=== PATIENT | male | born 1950 | race Caucasian/White ===

== ENCOUNTER → 2017-02-13 | Outpatient (CLI) | payer OTHER ==
[~2017-02-13] MED LIST: ASPI81TA28 PO; GLUC250C PO; LISI-787 PO; METO-217 PO; OMEG10007 PO; VARD0.05 PO
== END | disposition home or self-care (01) ==
LOC: C.RDSM 13:49
PROVIDERS: ATTEND Physical Medicine & Rehabilitation Sports Medicine
DX: M25.562 Pain in left knee (principal)

== ENCOUNTER → 2017-02-23 | Outpatient (CLI) | payer OTHER ==
[2017-02-23 10:10] LABS: ALT/SGPT 28 U/L (12-78); AST/SGOT 17 U/L (15-37); BLOOD UREA NITROGEN 12 mg/dl (7-18); BUN/CREATININE RATIO 11.3 (10-20); CALCIUM 8.9 mg/dl (8.5-10.1); CARBON DIOXIDE 31 mmol/L (21-32); CHLORIDE 106 mmol/L (98-107); CHOLESTEROL 153 mg/dl (0-200); GLUCOSE 89 mg/dl (70-99); POTASSIUM 4.1 mmol/L (3.5-5.1); SODIUM 142 mmol/L (136-145); TRIGLYCERIDES 112 mg/dl (0-150); VERY LOW DENSITY LIPOPROT CALC 22 mg/dl
[2017-02-23 10:20] LABS: ALKALINE PHOSPHATASE 65 U/L (45-117); CHOLESTEROL/HDL RATIO 4.8; HDL CHOLESTEROL 32 mg/dl; LDL CHOLESTEROL CALCULATED 99 mg/dl
== END ==
LOC: C.LAB 07:29
PROVIDERS: ATTEND Internal Medicine Geriatric Medicine
DX: I10 Essential (primary) hypertension (principal); M19.90 Unspecified osteoarthritis, unspecified site; E78.5 Hyperlipidemia, unspecified

== ENCOUNTER → 2017-03-30 | Outpatient (CLI) | payer OTHER | END | disposition home or self-care (01) | LOC: C.RDSM 08:15 | PROVIDERS: ATTEND Physical Medicine & Rehabilitation Sports Medicine | DX: M25.551 Pain in right hip (principal); M25.552 Pain in left hip; Z96.649 Presence of unspecified artificial hip joint ==

== ENCOUNTER → 2017-07-12 | Outpatient (CLI) | payer OTHER ==
--- NOTE | 2017-07-12 09:50 | DIAGNOSTIC IMAGING REPORT ---
TWO VIEW CHEST CLINICAL HISTORY: Acute bronchitis. FINDINGS: PA and lateral chest radiographs are compared to study dated 03/01/2011. The heart is enlarged and there is atherosclerotic calcification of the thoracic aorta. The pulmonary vasculature is noncongested. Chronic interstitial thickening is similar to previous. No airspace consolidation or pleural effusion is seen. There is no pneumothorax. The skeletal structures are osteopenic. Degenerative change is noted throughout the thoracic spine. IMPRESSION: Cardiomegaly with no active disease in the chest. Electronically signed by: Kevin Jean-Baptiste M.D. 07/12/2017 9:48 AM Dictated Date/Time: 07/12/2017 9:48 AM
== END | disposition home or self-care (01) ==
LOC: C.RADBC 08:25
PROVIDERS: ATTEND Internal Medicine Geriatric Medicine
DX: J20.9 Acute bronchitis, unspecified (principal)

== ENCOUNTER → 2017-08-08 | Outpatient (CLI) | payer OTHER | END | disposition home or self-care (01) | LOC: C.LAB 16:32 | PROVIDERS: ATTEND Urology | DX: Z00.00 Encounter for general adult medical examination without abnormal findings (principal); Z85.46 Personal history of malignant neoplasm of prostate; N52.9 Male erectile dysfunction, unspecified ==

== ENCOUNTER → 2018-03-12 | Outpatient (CLI) | payer OTHER ==
[2018-03-12 12:33] LABS: ALBUMIN 3.7 gm/dl (3.4-5.0); ALT/SGPT 36 U/L (12-78); AST/SGOT 27 U/L (15-37); BLOOD UREA NITROGEN 14 mg/dl (7-18); CARBON DIOXIDE 25 mmol/L (21-32); CHOLESTEROL 178 mg/dl (0-200); CREATININE 0.93 mg/dl (0.60-1.40); GLUCOSE 99 mg/dl (70-99); SODIUM 139 mmol/L (136-145)
[2018-03-12 12:36] LABS: ALKALINE PHOSPHATASE 65 U/L (45-117); LDL CHOLESTEROL CALCULATED 108 mg/dl; TOTAL PROTEIN 7.4 gm/dl (6.4-8.2)
== END | disposition home or self-care (01) ==
LOC: C.LAB 10:59
PROVIDERS: ATTEND Psychiatry & Neurology Psychiatry
DX: F33.1 Major depressive disorder, recurrent, moderate (principal); I10 Essential (primary) hypertension; E78.5 Hyperlipidemia, unspecified; Z86.010 Personal history of colon polyps

== ENCOUNTER 2025-02-17 15:46 | Observation (INO) ==
[2025-02-17] MEDS: SODIUM CHLORIDE 0.9% 500 ML IV SCH (17:13)
[2025-02-17 17:19] LABS: Alanine Aminotransferase 35.0 U/L (7-52); Albumin Globulin Ratio 1.2 (0.9-2); Alkaline Phosphatase 266.0 U/L (34-104); Anion Gap 8.0 (3-11); Bilirubin,Total 0.6 mg/dl (0.2-1.0); Blood Urea Nitrogen 14.0 mg/dl (6-23); Calcium 8.7 mg/dl (8.6-10.3); Carbon Dioxide 27.0 mmol/L (21-32); Chloride 102.0 mmol/L (98-107); Creatinine Clr Calc Pharmacy 79.7 ml/min; Globulin 2.8 gm/dl (2.5-4.0); Glucose 206.0 mg/dl (70-99(Fasting)); Magnesium 1.8 mg/dl (1.7-2.4); Potassium 3.7 mmol/L (3.5-5.1); Sodium 137.0 mmol/L (136-145); Total Protein 6.1 gm/dl (6.0-8.3)
--- NOTE | 2025-02-17 17:21 | Emergency Department Note ---
Impression & Plan CHI (closed head injury), Acute pain of right hip, Fall, Periprosthetic fracture around internal prosthetic right hip joint ED Provider Note ED Provider Note NAME: CORINNA AGUILAR AGE:74 SEX: Male : 1950 ARRIVES VIA: EMS INFORMANT: Patient ED PROVIDER(s): Ade Mayfield DO CHIEF COMPLAINT: Fall, right hip pain HPI: This is a 74-year-old male presents emergency department due to concern for right hip pain after a fall at home. Patient states he got up from eating outside on the deck, was carrying things to go back into the house and they started to fall and as he tried to grab them he became unsteady and off balance and fell backwards and slightly to the right. Patient states he did strike his head but did not lose consciousness or pass out. He states he then tried to crawl to grab a hold of something to try and get back up. Family came out and helped him. They did give him a walker and they were able to help him to a standing position however patient had severe pain trying to bear weight at the right hip. Patient states he has had prior bilateral hip replacements and a knee replacement as well done by Dr. Valentin of orthopedics. Patient is currently receiving chemotherapy. No current antiplatelet or anticoagulation medications. He denies any current headaches, dizziness, vision changes, worsening nausea, shortness of breath, chest pain, abdominal pain, neck or back pain. PAST MEDICAL HISTORY:See Below PAST SURGICAL HISTORY:See Below FAMILY HISTORY:See Below SOCIAL HISTORY:See Below HOME MEDICATIONS:See Below ALLERGIES:See Below VITALS:See Below PHYSICAL EXAMINATION: GENERAL: alert, well appearing, well nourished, no distress, non-toxic HEAD: nc, 2 contusions with superficial abrasions noted EYE EXAM: normal conjunctiva, PERRL and EOM's grossly intact OROPHARYNX: no exudate, no erythema, lips, buccal mucosa, and tongue normal and mucous membranes are moist NECK: supple, no nuchal rigidity, no adenopathy, non-tender, FROM LUNGS: Clear to auscultation. Normal chest wall mechanics, no w/r/r HEART: no murmurs, S1 normal and S2 normal CHEST WALL: no crepitus, no bony tenderness, no step off ABDOMEN: abdomen soft, non-tender, normo-active bowel sounds, no masses, no rebound or guarding. BACK: Back is symmetrical on inspection and there is no deformity, no midline tenderness, no CVA tenderness. SKIN: no rashes, petechiae, orbruising UPPER EXTREMITIES: upper extremities are grossly normal. FROM, nml pulses b/l. No evidence of trauma or deformities. Small superficial abrasion noted just distal to the olecranon process of the left elbow. LOWER EXTREMITIES: No pitting edema. FROM, nml pulses b/l. Well healed incisions b/l hips, pain with palpation over the lateral and anterior aspect of the right hip although patient does have some ability to flex the hip, no obvious trauma along the rest of the right lower extremity, no joint effusions, no bony tenderness NEURO EXAM: Normal sensorium, cranial nerves II-XII grossly intact, normal speech, no facial droop,nogross weakness of arms, no gross weakness of legs. Gross sensation intact. No ataxia. Vital Signs: reviewed and remarkable Differential Diagnosis: chi, fracture, contusion, abrasion, dislocation, hardware disruption, musculoskeletal strain/sprain, as well as others were considered MEDICAL DECISION MAKING: This is a 74-year-old male brought in by EMS after an accidental fall with complaints of right hip pain. Patient does admit to striking his head but denies LOC. He was afebrile and hemodynamically stable on arrival. Labs drawn and sent, IV established, EKG and x-rays performed at bedside and interpreted by me and patient monitored on telemetry. He was given IV fentanyl and IV Tylenol for pain. CT of the head and C-spine were reassuring however x-ray of the right hip and pelvis showed a periprosthetic right hip fracture. Case was discussed with on-call orthopedics who stated patient could be kept here on the hospitalist service for pain control, PT and Ortho evaluation tomorrow. Patient and family updated at bedside. Patient was noted to have a leukocytosis however I suspect this is more likely stress demargination as the procalcitonin was negative. I am less suspicious of occult infectious etiology despite his chemotherapy. Patient does use ASA daily, no anticoagulation. I have a low suspicion for any additional occult traumatic injury. Case discussed with the hospitalist team for additional evaluation and mgmt. Consultation(s): 1854: Discussed with Rand Bess, with orthopedics for Dr. Alcocer. They state patient can be admitted here for pain control and PT evaluation. 172: Discussed with Dr. Burnett, [place] hospitalist team, for additional evaluation and mgmt. ER Treatment Provided: See below Diagnostics Interpreted By Me: -ECG: Normal sinus at 60, nml axis, nml intervals, no acute ST/T wave changes -Cardiac Monitoring: An order was placed for continuous cardiac monitoring. The monitor shows a rate of 66 with normal sinus rhythm. -Laboratory studies: As stated above and show below. -Imaging studies: X-ray Chest: A single view study of the chest was reviewed and was negative for cardiomegaly, focal infiltrate, effusion, pulmonary edema, or wide mediastinum. xr hip/pelvis: right periprosthetic hip fracture Triage Nursing Note Reviewed Prior/Outside Records Reviewed Past Med/Surg History Problem List (Updated 02/18/25 @ 00:34 by Ade Mayfield DO) Periprosthetic fracture around internal prosthetic right hip joint (Acute) Femur fracture, right Fall (Acute) Acute pain of right hip (Acute) CHI (closed head injury) (Acute) Pancreatic cancer Hypokalemia Obesity (BMI 30-39.9) Hypertension Hyperlipidemia Left knee DJD Incontinence of urine OCD (obsessive compulsive disorder) Depression History of prostate cancer Erectile dysfunction Medical History Sensorineural hearing loss of both ears Tinnitus, bilateral Vitamin D deficiency ANVIK (hard of hearing) History of prostate cancer 2006 History of colon polyps Mitral regurgitation MILD TO MODERATE Osteoarthritis Anxiety Surgical History History of esophagogastroduodenoscopy (EGD) History of colonoscopy 11/2019 repeat 5 yrs History of total left knee replacement (TKR) History of tonsillectomy History of herniorrhaphy B/L INGUINAL History of prostatectomy (~2006) TOTAL (2006) History of total hip arthroplasty B/L Family History Father Prostate cancer Lung cancer Smoker Mother , in a MVA; no medical problems Family hx colonic polyps Other No family history of adverse response to anesthesia Denies family history of Ovarian cancer Myocardial infarction Breast cancer Colorectal cancer Social History Smoking Status: Never smoker Second Hand Exposure: No; Do You Dip or Chew Tobacco: No; Hx Alcohol Use: Yes Alcohol type: beer Alcohol Intake Frequency: Monthly or Less Alcohol Intake Frequency Comment: social Hx Substance Use: No Preferred Language: [place] Communication Ability: Effective Visual Impairment: Limited Hearing Ability: Normal Airport Ramp Attendant Required: No Beliefs That Will Affect Care: None marital status: Current Living Situation: Spouse current occupational status: employed How many Children do You have: 2 Feels Safe at Home: Yes Childhood Exposure to Second-Hand Smoke: Yes (father smoked ) Diet: regular Diet Comment: healthy caffeine: No Dental Care, Regularly: Yes Physical Activity Frequency: Daily Seatbelt Use: always Sunscreen Use: Yes Do you think of yourself as: straight/heterosexual Assistive Devices: Glasses Allergies Allergies Allergy/AdvReac Type Severity Reaction Status Date / Time No Known Allergies Allergy Unknown Verified 02/17/25 17:54 Home Meds Home Medications Medication Instructions Recorded Confirmed fluvoxamine 100 mg tablet 100 mg PO TID 09/30/24 02/17/25 cholecalciferol (vitamin D3) 50 2,000 unit PO DAILY 10/16/24 02/17/25 mcg (2,000 unit) capsule clonazepam 0.5 mg tablet 0.25 mg PO BID PRN Anxiety 10/16/24 02/17/25 omega 1-wfi-msy-fish oil 1,000 mg 1 cap PO DAILY 01/28/25 02/17/25 (120 mg-180 mg) capsule (Fish Oil) aspirin 81 mg tablet,delayed 81 mg PO QPM 02/17/25 02/17/25 release potassium chloride 20 mEq 20 meq PO Q OTHER DAY 02/17/25 02/17/25 tablet,extended release Previous Rx's Medication Instructions Recorded sildenafil (pulm.hypertension) 20 20 - 100 mg (1 - 5 x 20 mg) PO 12/26/23 mg tablet DAILY PRN sexual activity #30 tabs hydrochlorothiazide 12.5 mg tablet 12.5 mg PO DAILY #30 tabs 01/28/25 Results & Data (ED) Vital Signs Vital Signs - 24 hr 02/17/25 16:07 02/17/25 18:23 02/17/25 19:18 Temperature 36.6 C Temperature Source Oral Pulse Rate 61 Pulse Rate [Apical] 61 60 Pulse Rhythm [Apical] Regular Respiratory Rate 18 17 16 Respiratory Depth Normal Blood Pressure 132/79 Blood Pressure [Left Arm] 133/75 139/88 Blood Pressure Mean 96 Blood Pressure Mean [Left Arm] 94 105 Pulse Oximetry 96 95 96 Oxygen Delivery Method Room Air Room Air Room Air Sepsis Recent Fever Within 48 Hours No Sepsis New/Unexplained Change in Mental Status No Sepsis Action Taken by Nursing No Action Required 02/17/25 20:12 Temperature Temperature Source Pulse Rate Pulse Rate [Apical] 84 Pulse Rhythm [Apical] Respiratory Rate 16 Respiratory Depth Normal Blood Pressure Blood Pressure [Left Arm] 148/87 H Blood Pressure Mean Blood Pressure Mean [Left Arm] 107 Pulse Oximetry 95 Oxygen Delivery Method Room Air Sepsis Recent Fever Within 48 Hours Sepsis New/Unexplained Change in Mental Status Sepsis Action Taken by Nursing Laboratory Data 02/17/25 16:43 02/17/25 23:36 Lab Results 02/17/25 02/17/25 Range/Units 16:43 19:20 WBC 19.35 H (4.8-10.8) K/ul RBC 3.97 L (4.70-6.10) M/uL Hgb 12.6 L (14.0-18.0) g/dl Hct 36.9 L (42.0-52.0) % MCV 92.9 (80.0-100.0) fL MCH 31.7 (25.0-34.0) pg MCHC 34.1 (32.0-36.0) g/dL RDW Std Deviation 53.4 H (36.4-46.3) fL RDW Coeff of Vincenzo 15.8 H (11.5-14.5) % Plt Count 131 (130-400) K/uL MPV 10.2 (9.4-12.4) fL Immature Gran % (Auto) 1.2 % Neut % (Auto) 89.0 % Lymph % (Auto) 6.3 % [place] % (Auto) 2.8 % Eos % (Auto) 0.2 % Baso % (Auto) 0.5 % Neut # (Auto) 17.24 H (1.40-6.50) K/uL Lymph # (Auto) 1.22 (1.20-3.40) K/uL [place] # (Auto) 0.54 (0.11-0.59) K/uL Eos # (Auto) 0.03 (0.00-0.50) K/uL Baso # (Auto) 0.09 (0.00-0.20) K/uL Immature Gran # (Auto) 0.23 H (0.01-0.20) K/uL Dohle Bodies 3+ PT 11.6 (9.0-12.0) Seconds INR 1.1 (0.9-1.1) Sodium 137 (136-145) mmol/L Potassium 3.7 (3.5-5.1) mmol/L Chloride 102 (98-107) mmol/L Carbon Dioxide 27 (21-32) mmol/L Anion Gap 8 (3-11) BUN 14 (6-23) mg/dl Creatinine 0.94 (0.6-1.4) mg/dl Est Cr Clr Drug Dosing 79.7 ml/min eGFR 85.07 BUN/Creatinine Ratio 14.9 (10-20) Glucose 206 H (70-99(Fasting)) mg/dl Calcium 8.7 (8.6-10.3) mg/dl Magnesium 1.8 (1.7-2.4) mg/dl Total Bilirubin 0.6 (0.2-1.0) mg/dl AST 28 (13-39) U/L ALT 35 (7-52) U/L Alkaline Phosphatase 266 H (34-104) U/L Total Creatine Kinase 74 (30-223) U/L Total Protein 6.1 (6.0-8.3) gm/dl Albumin 3.3 L (3.4-5.0) gm/dl Globulin 2.8 (2.5-4.0) gm/dl Albumin/Globulin Ratio 1.2 (0.9-2) Procalcitonin 0.28 (0-0.5) ng/ml Urine Color Dark Yellow Urine Appearance Clear (Clear) Urine pH 6.5 (4.5-7.5) Ur Specific [place] 1.022 (1.000-1.030) Urine Protein Negative (Negative) Urine Glucose (UA) Negative (Negative) Urine Ketones Negative (Negative) Urine Blood Negative (Negative) Urine Nitrite Negative (Negative) Urine Bilirubin Negative (Negative) Urine Urobilinogen Negative (Negative) Ur Leukocyte Esterase Negative (Negative) Urine Comment Administered Medications Clonazepam (Clonazepam 0.25 Mg Od Tab) 0.25 mg PO TID HAZEL Stop: 03/19/25 22:54 Last Admin: 02/17/25 23:42 Dose: Not Given Documented By: RICHY Fluvoxamine Maleate (Fluvoxamine Maleate 50 Mg Tab) 100 mg PO TID HAZEL Stop: 03/19/25 22:54 Last Admin: 02/17/25 23:43 Dose: 100 mg Documented By: RICHY Lactated Ringer's (Lr) 1,000 mls @ 125 mls/hr IV .Q8H HAZEL Stop: 02/21/25 00:00 Last Admin: 02/17/25 23:50 Dose: 125 mls/hr Documented By: RICHY Morphine Sulfate (Morphine Sulfate 4 Mg/Ml 1 Ml Carp\Vial) 4 mg IV Q3H PRN PRN Reason: Pain (6,7,8,9,10) Stop: 03/03/25 22:54 Last Admin: 02/17/25 23:43 Dose: 4 mg Documented By: RICHY Discontinued Medications Fentanyl Citrate (Fentanyl Citrate Pf 100 Mcg/2 Ml Vial) 50 mcg IV Q15M PRN PRN Reason: Pain Stop: 03/03/25 16:24 Last Admin: 02/17/25 22:21 Dose: 50 mcg Documented By: Admin: 02/17/25 17:13 Dose: 50 mcg Documented By: LINDA Sodium Chloride (Nss) 500 mls @ 125 mls/hr IV .Q4H HAZEL Stop: 02/17/25 20:29 Last Infusion: 02/17/25 21:33 Dose: Infused Documented By: Admin: 02/17/25 17:13 Dose: 125 mls/hr Documented By: LINDA Acetaminophen (Ofirmev) 1,000 mg in 100 mls @ 400 mls/hr IV NOW STA Stop: 02/17/25 19:11 Last Admin: 02/17/25 22:59 Dose: Not Given Documented By: RICHY Imaging Data Radiologist's Impression: Hip/Pelvis X-Ray 02/17/25 16:25 Study: Pelvis 1 view, right hip 2 views History: Pain Comparison: 08/24/2023 Findings: Bilateral total hip arthroplasty. A fracture extends into the proximal femur at the base of the greater trochanter laterally, and extends into the stem of the arthroplasty. Single frontal view of the left arthroplasty appears intact without fracture. Alignment is anatomic. Joint spaces are well maintained. There is no joint effusion or significant soft tissue swelling. Bone mineralization is decreased. Impression: Fracture of the proximal right femur extending into the stem of the arthroplasty Electronically signed by Erasto Quiros 02-17-2025 6:[address] 02/17/25 16:26 EXAM: CT cervical spine wo con CLINICAL HISTORY: trauma TECHNIQUE: CT scan of the cervical spine was performed without the administration of intravenous contrast. Contiguous axial images were obtained from the skull base to the upper thoracic spine. Coronal and sagittal reformatted images were also reviewed. One of the following dose reduction techniques was utilized for this exam. Automated exposure control, adjustment of the mA and/or kV according to patient size, and use of iterative reconstruction. COMPARISON: No previous studies are available for comparison. FINDINGS: Advanced cervical spondylotic changes are seen by wedging (C5) and multilevel large anterior marginal and bridging osteophytes (some are detached). Vertebrae: No evidence of acute fracture or dislocation. Generalized osteopenia. No signs of lytic or sclerotic lesions. Normal configuration of the posterior elements. Grade 1 anterolisthesis of C3 over C4. Atlantoaxial osteoarthritic changes. Intervertebral Discs: The intervertebral disc spaces are narrowed at multiple levels. Significantly reduced intervertebral disc space at C3-C4, C5-C6 and C6-C7 levels with vacuum phenomena and disc osteophyte complexes indenting the ventral thecal sac and narrowing the bilateral neural foramina. No critical bony canal stenosis. Facet Joints: Multilevel facet osteoarthropathy. No evidence of dislocation or subluxation. Neural Foramina: The neural foramina are narrowed at multiple levels. Prevertebral Soft Tissues: The prevertebral soft tissues are normal in thickness without evidence of mass or abnormal fluid collection. Additional Findings: Right central venous line inserted. IMPRESSION: 1. Advanced cervical spondylosis. 2. No evidence of acute fracture or dislocation. Electronically signed by Kevin Cruz 02-17-2025 6:19 PM Chest X-Ray 02/17/25 16:26 Chest radiograph, one view History: Chest pain Comparison: None Findings: Single AP view of the chest performed. No focal consolidation or pleural effusion. No pneumothorax. Right chest wall port with catheter tip at the superior atrial caval junction. The cardiomediastinal silhouette is within normal limits. Normal pulmonary vascularity. No evidence for lymphadenopathy. No visualized bony or soft tissue abnormality. Degenerative changes of the thoracic spine. Impression: Normal chest radiograph Electronically signed by Erasto Quiros 02-17-2025 6:[address] 02/17/25 16:26 EXAM: CT head/brain wo con CLINICAL HISTORY: trauma. Pt presents to ED via EMS from home with Right hip pain after a fall. Pt states he was on the first stair, fell backwards and struck his head, and began having right hip pain. EMS notes the pt has had bilateral hip replacements and the right does not feel the same as the left. pt is unable to bear weight at this point. pt is a cancer pt on chemo for pancreatic cancer. BP was low for EMS at 100/45 TECHNIQUE: Axial non-contrast CT scan of the brain was performed from the skull base to the high parietal region. One of the following dose reduction techniques were utilized for this exam: Automated exposure control, adjustment of the mA and/or kV according to patient size, use of iterative reconstruction. DLP: 1818.42 mGy.cm COMPARISON: None. FINDINGS: Brain Parenchyma: Age-related involutionary changes. Normal attenuation of the cerebral hemispheres, cerebellum, and brainstem. No evidence of acute infarct, hemorrhage, or mass effect. No abnormal areas of hypo- or hyperattenuation. Ventricular System: No evidence of hydrocephalus or ventricular enlargement. Subarachnoid Spaces: Prominent sulci and cisterns. No evidence of subarachnoid hemorrhage or extra-axial fluid collections. Cerebellum and Brainstem: No masses, lesions, or areas of abnormal density. Giant cisterna magna. Orbits: Normal appearance of the globes, optic nerves, and extraocular muscles. No evidence of orbital masses or abnormal density. Sinuses: Clear paranasal sinuses. No evidence of sinusitis or mucosal thickening. Mastoid Air Cells: Clear mastoid air cells. No evidence of mastoiditis. Skull: Normal skull morphology. Small subgaleal soft tissue swelling with thickness of 6.8 mm in right occipital region. IMPRESSION: 1. Age-related involutionary changes. 2. Small subgaleal soft tissue swelling with thickness of 6.8 mm in right occipital region. 3. No acute intracranial hemorrhage. Electronically signed by Kevin Cruz 02-17-2025 5:51 PM Discharge Plan Visit Data Chief Complaint: Fall Stated Complaint: fall ED Provider: Ade Mayfield Discharge Problem: CHI (closed head injury), Acute pain of right hip, Fall, Periprosthetic fracture around internal prosthetic right hip joint Patient Disposition: Admitted As Inpatient Condition: Fair Discharge Instructions Interventions: ED Discharge Assessment Last Done: 02/17/25 22:38
[2025-02-17 17:26] LABS: INR 1.1 (0.9-1.1); Prothrombin Time 11.6 Seconds (9.0-12.0)
[2025-02-17 17:41] LABS: Dohle Bodies 3+; Hematocrit (blood only) 36.9 % (42.0-52.0); Hemoglobin 12.6 g/dl (14.0-18.0); Immature Granulocytes # (auto) 0.23 K/uL (0.01-0.20); Immature Granulocytes % (auto) 1.2 %; Mean Corpuscular Hemoglobin 31.7 pg (25.0-34.0); Mean Corpuscular Volume 92.9 fL (80.0-100.0); Platelet Count 131 K/uL (130-400); RDW Standard Deviation 53.4 fL (36.4-46.3); Red Blood Count 3.97 M/uL (4.70-6.10); White Blood Count 19.35 K/ul (4.8-10.8)
--- NOTE | 2025-02-17 17:52 | CT Scan Report ---
EXAM: CT head/brain wo con CLINICAL HISTORY: trauma. Pt presents to ED via EMS from home with Right hip pain after a fall. Pt states he was on the first stair, fell backwards and struck his head, and began having right hip pain. EMS notes the pt has had bilateral hip replacements and the right does not feel the same as the left. pt is unable to bear weight at this point. pt is a cancer pt on chemo for pancreatic cancer. BP was low for EMS at 100/45 TECHNIQUE: Axial non-contrast CT scan of the brain was performed from the skull base to the high parietal region. One of the following dose reduction techniques were utilized for this exam: Automated exposure control, adjustment of the mA and/or kV according to patient size, use of iterative reconstruction. DLP: 1818.42 mGy.cm COMPARISON: None. FINDINGS: Brain Parenchyma: Age-related involutionary changes. Normal attenuation of the cerebral hemispheres, cerebellum, and brainstem. No evidence of acute infarct, hemorrhage, or mass effect. No abnormal areas of hypo- or hyperattenuation. Ventricular System: No evidence of hydrocephalus or ventricular enlargement. Subarachnoid Spaces: Prominent sulci and cisterns. No evidence of subarachnoid hemorrhage or extra-axial fluid collections. Cerebellum and Brainstem: No masses, lesions, or areas of abnormal density. Giant cisterna magna. Orbits: Normal appearance of the globes, optic nerves, and extraocular muscles. No evidence of orbital masses or abnormal density. Sinuses: Clear paranasal sinuses. No evidence of sinusitis or mucosal thickening. Mastoid Air Cells: Clear mastoid air cells. No evidence of mastoiditis. Skull: Normal skull morphology. Small subgaleal soft tissue swelling with thickness of 6.8 mm in right occipital region. IMPRESSION: 1. Age-related involutionary changes. 2. Small subgaleal soft tissue swelling with thickness of 6.8 mm in right occipital region. 3. No acute intracranial hemorrhage. Electronically signed by Kevin Cruz 02-17-2025 5:51 PM
--- NOTE | 2025-02-17 18:02 | XRay Report ---
Study: Pelvis 1 view, right hip 2 views History: Pain Comparison: 08/24/2023 Findings: Bilateral total hip arthroplasty. A fracture extends into the proximal femur at the base of the greater trochanter laterally, and extends into the stem of the arthroplasty. Single frontal view of the left arthroplasty appears intact without fracture. Alignment is anatomic. Joint spaces are well maintained. There is no joint effusion or significant soft tissue swelling. Bone mineralization is decreased. Impression: Fracture of the proximal right femur extending into the stem of the arthroplasty Electronically signed by Erasto Quiros 02-17-2025 6:01 PM
--- NOTE | 2025-02-17 18:04 | XRay Report ---
Chest radiograph, one view History: Chest pain Comparison: None Findings: Single AP view of the chest performed. No focal consolidation or pleural effusion. No pneumothorax. Right chest wall port with catheter tip at the superior atrial caval junction. The cardiomediastinal silhouette is within normal limits. Normal pulmonary vascularity. No evidence for lymphadenopathy. No visualized bony or soft tissue abnormality. Degenerative changes of the thoracic spine. Impression: Normal chest radiograph Electronically signed by Erasto Quiros 02-17-2025 6:01 PM
--- NOTE | 2025-02-17 18:20 | CT Scan Report ---
EXAM: CT cervical spine wo con CLINICAL HISTORY: trauma TECHNIQUE: CT scan of the cervical spine was performed without the administration of intravenous contrast. Contiguous axial images were obtained from the skull base to the upper thoracic spine. Coronal and sagittal reformatted images were also reviewed. One of the following dose reduction techniques was utilized for this exam. Automated exposure control, adjustment of the mA and/or kV according to patient size, and use of iterative reconstruction. COMPARISON: No previous studies are available for comparison. FINDINGS: Advanced cervical spondylotic changes are seen by wedging (C5) and multilevel large anterior marginal and bridging osteophytes (some are detached). Vertebrae: No evidence of acute fracture or dislocation. Generalized osteopenia. No signs of lytic or sclerotic lesions. Normal configuration of the posterior elements. Grade 1 anterolisthesis of C3 over C4. Atlantoaxial osteoarthritic changes. Intervertebral Discs: The intervertebral disc spaces are narrowed at multiple levels. Significantly reduced intervertebral disc space at C3-C4, C5-C6 and C6-C7 levels with vacuum phenomena and disc osteophyte complexes indenting the ventral thecal sac and narrowing the bilateral neural foramina. No critical bony canal stenosis. Facet Joints: Multilevel facet osteoarthropathy. No evidence of dislocation or subluxation. Neural Foramina: The neural foramina are narrowed at multiple levels. Prevertebral Soft Tissues: The prevertebral soft tissues are normal in thickness without evidence of mass or abnormal fluid collection. Additional Findings: Right central venous line inserted. IMPRESSION: 1. Advanced cervical spondylosis. 2. No evidence of acute fracture or dislocation. Electronically signed by Kevin Cruz 02-17-2025 6:19 PM
[2025-02-17 19:26] LABS: Appearance Urine Clear (Clear); Glucose Urine UA Negative (Negative)
--- NOTE | 2025-02-17 19:46 | History & Physical Report ---
Date of Service February 17, 2025 Assessment & Plan (1) Femur fracture, right: (2) Fall: (3) CHI (closed head injury): (4) Pancreatic cancer: Plan 74-year-old male PMHx pancreatic cancer on chemotherapy, HTN, HLD, obesity, pancreatic cancer, depression and OCD presenting with R hip pain after falling backwards and striking his head the day of arrival. ED evaluation reveals CBC with leukocytosis 19.35, H&H 12.6/36.9; PT/INR WNL; CMP glucose 206, alkaline phosphatase 266, albumin 3.3; procalcitonin 0.28; UA negative for infection; hip/pelvis XR (R) fracture of proximal R femur extending into the stem of arthroplasty; cervical spine CT advanced cervical spondylosis but no fracture or dislocation; CXR WNL; head CT age-related changes, small subgaleal soft tissue swelling with thickness of 6.8 mm in R occipital region, no acute hemorrhage; EKG NSR at 60 bpm.; Provided with 500 mL NSS, fentanyl citrate 50 mcg IV, and acetaminophen 1 g IV in ED. #R femur fracture/Fall/Closed head injury Pt presenting for R hip pain after falling backwards, unable to bear weight on R hip. - CBC leukocytosis of 19.35, procalcitonin 0.28; CMP alkaline phosphatase 266; CK pending - CBC am - R hip/pelvis XR large fracture of proximal femur extending into stem of a rthroplasty - CXR WNL - Cervical spine CT with spondylosis but no acute findings - Head CT without acute bleed, does reveal small subcu soft tissue swelling with 6.8 mm thickness in R occipital region - Fall precautions - NPO - IVF LR @ 125 mL/hr - Pain management acetaminophen, morphine prn pain - PT/OT ordered - appreciate assistance - Ortho consulted - appreciate input + recs #Pancreatic CA/Prostate CA Diagnosed with pancreatic cancer September,. Prostate CA ~ 16 years ago, PSA undetectable in 2023. Follows with hematology/oncology, most recent visit 02/11/2025. Currently on FOLFIRINOX and Pegfilgrastim. Does occasionally get diarrhea after chemo, utilizes Imodium for such. - CBC with leukocytosis of 19.35, neutrophils 17.24; On Pegfilgrastim - CBC am - Imodium prn if severe diarrhea - Consult oncology as needed #OCD/Anxiety- Fluvoxamine, Clonazepam prn (states that he takes this 3x/day papito, ordered as such) - continue #HTN- HCTZ - continue Dispo: Admit, med/sx VTE Prophylaxis: SCDs once proper pain control -- deferred chemical prophylaxis at time of admission This document was dictated utilizing [employer]. Please excuse any grammatical errors that may be secondary to use of this software. Admission and Anticipated Discharge Date Admission Date: 02/17/2025 History of Present Illness Chief Complaint: Fall, R hip pain Primary Care Provider: Som Angel, 74-year-old male PMHx pancreatic cancer on chemotherapy, HTN, HLD, obesity, pancreatic cancer, depression and OCD presenting with R hip pain after falling backwards and striking his head the day of arrival. He did have bilateral hip replacements in the past, states that right does not feel the same as the left. Unable to bear weight. Pt states that he had come home from work to have lunch with his family. He describes feeling that he was having "chemo fog" which he experiences after chemo often, and some fatigue. He was carrying dishes back into the house when he went to step up 1 step and lost balance, falling backwards and hitting his head. He did not lose consciousness. He states he immediately had R hip pain and was unable to get up on his own. Describes the pain being 10/10 on the pain scale with any movement, but currently he is without pain and is just experiencing throbbing in his RLE. He does occasionally have diarrhea and after his fall, he had soiled himself. He normally takes Imodium for these episodes and it is 2/2 his chemotherapy. Has neuropathy at baseline in BLE. He reports no additional symptoms at that time to include chest pain, palpitations, SOB, abdominal pain, N/V/C, numbness/tingling, F/C, URI symptoms, LUTS, weakness, or syncope. Again, no LOC. His last chemotherapy cycle was 02/11 and then he had a chemo drip until 02/13. He is due for chemotherapy again next week, on 02/25/2025. Pt does have history of bilateral hip repairs and L knee repair, done by [facility]. ED evaluation reveals CBC with leukocytosis 19.35, H&H 12.6/36.9; PT/INR WNL; CMP glucose 206, alkaline phosphatase 266, albumin 3.3; procalcitonin 0.28; UA negative for infection; hip/pelvis XR (R) fracture of proximal R femur extending into the stem of arthroplasty; cervical spine CT advanced cervical spondylosis but no fracture or dislocation; CXR WNL; head CT age-related changes, small subgaleal soft tissue swelling with thickness of 6.8 mm in R occipital region, no acute hemorrhage; EKG NSR at 60 bpm.; Provided with 500 mL NSS, fentanyl citrate 50 mcg IV, and acetaminophen 1 g IV in ED. Please see Dr. Burnett's attestation for adjustments/additions to treatment plan. Allergies Allergy/AdvReac Type Severity Reaction Status Date / Time No Known Allergies Allergy Unknown Verified 02/17/25 17:54 Home Medications Medication Instructions Recorded Confirmed Type sildenafil (pulm.hypertension) 20 20 - 100 mg (1 - 5 x 20 mg) PO 12/26/23 02/17/25 Rx mg tablet DAILY PRN sexual activity #30 tabs fluvoxamine 100 mg tablet 100 mg PO TID 09/30/24 02/17/25 History cholecalciferol (vitamin D3) 50 2,000 unit PO DAILY 10/16/24 02/17/25 History mcg (2,000 unit) capsule clonazepam 0.5 mg tablet 0.25 mg PO BID PRN Anxiety 10/16/24 02/17/25 History hydrochlorothiazide 12.5 mg tablet 12.5 mg PO DAILY #30 tabs 01/28/25 02/17/25 Rx omega 1-erd-opo-fish oil 1,000 mg 1 cap PO DAILY 01/28/25 02/17/25 History (120 mg-180 mg) capsule (Fish Oil) aspirin 81 mg tablet,delayed 81 mg PO QPM 02/17/25 02/17/25 History release potassium chloride 20 mEq 20 meq PO Q OTHER DAY 02/17/25 02/17/25 History tablet,extended release Past Med/Surg History Problem List Periprosthetic fracture around internal prosthetic right hip joint (Acute) Femur fracture, right Fall (Acute) Acute pain of right hip (Acute) CHI (closed head injury) (Acute) Pancreatic cancer Hypokalemia Obesity (BMI 30-39.9) Hypertension Hyperlipidemia Left knee DJD Incontinence of urine OCD (obsessive compulsive disorder) Depression History of prostate cancer Erectile dysfunction Medical History Sensorineural hearing loss of both ears Tinnitus, bilateral Vitamin D deficiency [place] (hard of hearing) History of prostate cancer 2006 History of colon polyps Mitral regurgitation MILD TO MODERATE Osteoarthritis Anxiety Surgical History History of esophagogastroduodenoscopy (EGD) History of colonoscopy 11/2019 repeat 5 yrs History of total left knee replacement (TKR) History of tonsillectomy History of herniorrhaphy B/L INGUINAL History of prostatectomy (~2006) TOTAL (2006) History of total hip arthroplasty B/L Family History Father Prostate cancer Lung cancer Smoker Mother , in a MVA; no medical problems Family hx colonic polyps Other No family history of adverse response to anesthesia Denies family history of Ovarian cancer Myocardial infarction Breast cancer Colorectal cancer Social History Smoking Status: Never smoker Second Hand Exposure: No; Do You Dip or Chew Tobacco: No; Hx Alcohol Use: No Hx Substance Use: No Preferred Language: Argentine Communication Ability: Effective Visual Impairment: Limited Hearing Ability: Normal Bundle Shaker Required: No Beliefs That Will Affect Care: None marital status: Current Living Situation: Spouse Current Living Situation Comment: lives with and son at home current occupational status: employed How many Children do You have: 2 Feels Safe at Home: Yes Safety Concerns: Feels Safe At This Time Childhood Exposure to Second-Hand Smoke: Yes (father smoked ) Diet: regular Diet Comment: healthy caffeine: No Dental Care, Regularly: Yes Physical Activity Frequency: Daily Seatbelt Use: always Sunscreen Use: Yes Do you think of yourself as: straight/heterosexual Assistive Devices: Glasses Review of Systems Review of Systems: All systems reviewed & are unremarkable except as noted in Subjective Physical Exam Physical Exam: General: No acute distress Skin: Warm and dry; Port R chest without erythema/edema/drainage, "02/17" on top dressing Head: Normocephalic, atraumatic Eyes: PERRL, conjunctivae clear, sclera non-icteric; wearing glasses ENT: External ear and ear canal without swelling; nose atraumatic; good dentition, tongue normal appearance, pharynx normal Neck: Supple, no LAD Cardio: RRR, no M/G/R, S1 and S2 normal Resp: No respiratory distress, Lungs CTA in all lobes bilaterally, no wheezes, rales, or rhonchi Abdomen: Soft, symmetric, nontender; No masses or hepatosplenomegaly; Bowel sounds normoactive MSK: Tenderness to palpation R hip, no ecchymosis or neurological deficits; limited ROM; pulses palpable and equal; no edema. Neuro: Awake, alert; Sensation intact bilaterally; CN grossly intact Psych: Appropriate mood and affect; good judgement and insight. present in room at time of visit. Results & Data Results & Data Vital Signs (Past 12 Hours) Vital Signs Temp Pulse Pulse Resp BP BP Pulse Ox 02/17/25 19:18 60 16 139/88 96 02/17/25 18:23 61 17 133/75 95 02/17/25 16:07 36.6 C 61 18 132/79 96 O2 Del Method 02/17/25 19:18 Room Air 02/17/25 18:23 Room Air 02/17/25 16:07 Room Air Laboratory Results 02/17/25 02/17/25 19:20 16:43 WBC 19.35 H RBC 3.97 L Hgb 12.6 L Hct 36.9 L MCV 92.9 MCH 31.7 MCHC 34.1 RDW Std Deviation 53.4 H RDW Coeff of Vincenzo 15.8 H Plt Count 131 MPV 10.2 Immature Gran % (Auto) 1.2 Neut % (Auto) 89.0 Lymph % (Auto) 6.3 Chase % (Auto) 2.8 Eos % (Auto) 0.2 Baso % (Auto) 0.5 Neut # (Auto) 17.24 H Lymph # (Auto) 1.22 Chase # (Auto) 0.54 Eos # (Auto) 0.03 Baso # (Auto) 0.09 Immature Gran # (Auto) 0.23 H Dohle Bodies 3+ PT 11.6 INR 1.1 Sodium 137 Potassium 3.7 Chloride 102 Carbon Dioxide 27 Anion Gap 8 BUN 14 Creatinine 0.94 Est Cr Clr Drug Dosing 79.7 eGFR 85.07 BUN/Creatinine Ratio 14.9 Glucose 206 H Calcium 8.7 Magnesium 1.8 Total Bilirubin 0.6 AST 28 ALT 35 Alkaline Phosphatase 266 H Total Protein 6.1 Albumin 3.3 L Globulin 2.8 Albumin/Globulin Ratio 1.2 Procalcitonin 0.28 Urine Color Dark Yellow Urine Appearance Clear Urine pH 6.5 Ur Specific [place] 1.022 Urine Protein Negative Urine Glucose (UA) Negative Urine Ketones Negative Urine Blood Negative Urine Nitrite Negative Urine Bilirubin Negative Urine Urobilinogen Negative Ur Leukocyte Esterase Negative Urine Comment Diagnostic Findings Hip/Pelvis X-Ray 02/17/25 16:25 Study: Pelvis 1 view, right hip 2 views History: Pain Comparison: 08/24/2023 Findings: Bilateral total hip arthroplasty. A fracture extends into the proximal femur at the base of the greater trochanter laterally, and extends into the stem of the arthroplasty. Single frontal view of the left arthroplasty appears intact without fracture. Alignment is anatomic. Joint spaces are well maintained. There is no joint effusion or significant soft tissue swelling. Bone mineralization is decreased. Impression: Fracture of the proximal right femur extending into the stem of the arthroplasty Electronically signed by Erasto Quiros 02-17-2025 6:[address] 02/17/25 16:26 EXAM: CT cervical spine wo con CLINICAL HISTORY: trauma TECHNIQUE: CT scan of the cervical spine was performed without the administration of intravenous contrast. Contiguous axial images were obtained from the skull base to the upper thoracic spine. Coronal and sagittal reformatted images were also reviewed. One of the following dose reduction techniques was utilized for this exam. Automated exposure control, adjustment of the mA and/or kV according to patient size, and use of iterative reconstruction. COMPARISON: No previous studies are available for comparison. FINDINGS: Advanced cervical spondylotic changes are seen by wedging (C5) and multilevel large anterior marginal and bridging osteophytes (some are detached). Vertebrae: No evidence of acute fracture or dislocation. Generalized osteopenia. No signs of lytic or sclerotic lesions. Normal configuration of the posterior elements. Grade 1 anterolisthesis of C3 over C4. Atlantoaxial osteoarthritic changes. Intervertebral Discs: The intervertebral disc spaces are narrowed at multiple levels. Significantly reduced intervertebral disc space at C3-C4, C5-C6 and C6-C7 levels with vacuum phenomena and disc osteophyte complexes indenting the ventral thecal sac and narrowing the bilateral neural foramina. No critical bony canal stenosis. Facet Joints: Multilevel facet osteoarthropathy. No evidence of dislocation or subluxation. Neural Foramina: The neural foramina are narrowed at multiple levels. Prevertebral Soft Tissues: The prevertebral soft tissues are normal in thickness without evidence of mass or abnormal fluid collection. Additional Findings: Right central venous line inserted. IMPRESSION: 1. Advanced cervical spondylosis. 2. No evidence of acute fracture or dislocation. Electronically signed by Kevin Cruz 02-17-2025 6:19 PM Chest X-Ray 02/17/25 16:26 Chest radiograph, one view History: Chest pain Comparison: None Findings: Single AP view of the chest performed. No focal consolidation or pleural effusion. No pneumothorax. Right chest wall port with catheter tip at the superior atrial caval junction. The cardiomediastinal silhouette is within normal limits. Normal pulmonary vascularity. No evidence for lymphadenopathy. No visualized bony or soft tissue abnormality. Degenerative changes of the thoracic spine. Impression: Normal chest radiograph Electronically signed by Erasto Quiros 02-17-2025 6:[address] 02/17/25 16:26 EXAM: CT head/brain wo con CLINICAL HISTORY: trauma. Pt presents to ED via EMS from home with Right hip pain after a fall. Pt states he was on the first stair, fell backwards and struck his head, and began having right hip pain. EMS notes the pt has had bilateral hip replacements and the right does not feel the same as the left. pt is unable to bear weight at this point. pt is a cancer pt on chemo for pancreatic cancer. BP was low for EMS at 100/45 TECHNIQUE: Axial non-contrast CT scan of the brain was performed from the skull base to the high parietal region. One of the following dose reduction techniques were utilized for this exam: Automated exposure control, adjustment of the mA and/or kV according to patient size, use of iterative reconstruction. DLP: 1818.42 mGy.cm COMPARISON: None. FINDINGS: Brain Parenchyma: Age-related involutionary changes. Normal attenuation of the cerebral hemispheres, cerebellum, and brainstem. No evidence of acute infarct, hemorrhage, or mass effect. No abnormal areas of hypo- or hyperattenuation. Ventricular System: No evidence of hydrocephalus or ventricular enlargement. Subarachnoid Spaces: Prominent sulci and cisterns. No evidence of subarachnoid hemorrhage or extra-axial fluid collections. Cerebellum and Brainstem: No masses, lesions, or areas of abnormal density. Giant cisterna magna. Orbits: Normal appearance of the globes, optic nerves, and extraocular muscles. No evidence of orbital masses or abnormal density. Sinuses: Clear paranasal sinuses. No evidence of sinusitis or mucosal thickening. Mastoid Air Cells: Clear mastoid air cells. No evidence of mastoiditis. Skull: Normal skull morphology. Small subgaleal soft tissue swelling with thickness of 6.8 mm in right occipital region. IMPRESSION: 1. Age-related involutionary changes. 2. Small subgaleal soft tissue swelling with thickness of 6.8 mm in right occipital region. 3. No acute intracranial hemorrhage. Electronically signed by Kevin Cruz 02-17-2025 5:51 PM Medications Administered 500 mL NSS Fentanyl citrate 50 mcg IV Acetaminophen 1 g IV ECG Additional Comments: NSR 60 bpm, KS 178, QRS 90, QT/QTc 404/404, PRT 27/-20/25 Code Status & VTE Plan Code Status Full Supervising Physician Co-Signing Physician Notes Patient seen and examined, chart reviewed, case discussed with CHAS Merida and I agree with the assessment and plan as above. In brief, patient is a 74yo male with history of Pancreatic Cancer on chemotherapy presenting after a fall. Patient reports an episode of "fogginess" followed by falling backwards and striking his head. No LOC. Patient with fracture of the proximal right femur extending into the stem of the arthroplasty. Patient is known to Dr. Valentin - has had bilateral MARIPOSA and TKA On exam he is resting comfortably, RLE elevated, NV intact Port in right chest wall, nontender Labs and images reviewed Assessment/Plan -Keep patient NPO for now in the event of surgical intervention -LR at 125mL/hr -PT/OT evaluations appreciated -Ortho consultation appreciated - will request Dr. Valentin as patient is known to him. -Pain control with Morphine PRN -Zofran PRN -Remainder as above PG Care Time/CCT Total # of Minutes Spent Total Time Spent with Patient: Total time spent is greater than 50% in coordination of care (as documented) at patient's floor/unit and/or counseling patient: Coding Level of Care Code 62274 INT INP/OBS CARE MIN Diagnoses Femur fracture, right S72.91XA Fall W19.XXXA CHI (closed head injury) S09.90XA Pancreatic cancer C25.9
[2025-02-17 20:45] LABS: Creatine Kinase 74.0 U/L (30-223)
[2025-02-17] MEDS ORDERED: ONDANSETRON INJ 2 MG/ML 2 ML VIAL IV PRN (22:55)
[2025-02-17] MEDS ORDERED: LOPERAMIDE HCL 2 MG CAP PO PRN (22:55)
[2025-02-17] MEDS ORDERED: MELATONIN 3 MG TAB PO PRN (22:55)
[2025-02-17] MEDS ORDERED: ACETAMINOPHEN 325 MG TAB PO PRN (22:55)
[2025-02-17] MEDS: ACETAMINOPHEN 1,000 MG/100 ML VIAL IV STA (22:59)
[2025-02-17] MEDS: clonazePAM 0.25 MG OD TAB PO SCH (23:42)
[2025-02-17] MEDS: MoRPHine SULFATE 4 MG/ML 1 ML CARP\\VIAL IV PRN (23:43)
[2025-02-17] MEDS: LACTATED RINGER'S 1,000 ML IV SCH (23:50)
[2025-02-18 00:15] LABS: Anion Gap 5.0 (3-11); Blood Urea Nitrogen 11.0 mg/dl (6-23); Calcium 8.2 mg/dl (8.6-10.3); Carbon Dioxide 27.0 mmol/L (21-32); Chloride 104.0 mmol/L (98-107); Creatinine Clr Calc Pharmacy 102.7 ml/min; Glucose 128.0 mg/dl (70-99(Fasting)); Potassium 3.4 mmol/L (3.5-5.1); Sodium 136.0 mmol/L (136-145)
[2025-02-18 06:56] LABS: Hematocrit (blood only) 33.5 % (42.0-52.0); Hemoglobin 11.3 g/dl (14.0-18.0); Mean Corpuscular Hemoglobin 31.7 pg (25.0-34.0); Mean Corpuscular Volume 94.1 fL (80.0-100.0); Platelet Count 107 K/uL (130-400); RDW Standard Deviation 53.8 fL (36.4-46.3); Red Blood Count 3.56 M/uL (4.70-6.10); White Blood Count 14.64 K/ul (4.8-10.8)
[2025-02-18] MEDS ORDERED: hydroCHLOROthiazide 25 MG TAB PO SCH (09:00)
[2025-02-18 09:59] LABS: Anion Gap 5.0 (3-11); Blood Urea Nitrogen 10.0 mg/dl (6-23); Calcium 8.4 mg/dl (8.6-10.3); Carbon Dioxide 28.0 mmol/L (21-32); Chloride 104.0 mmol/L (98-107); Creatinine Clr Calc Pharmacy 119.0 ml/min; Glucose 117.0 mg/dl (70-99(Fasting)); Magnesium 1.8 mg/dl (1.7-2.4); Potassium 3.4 mmol/L (3.5-5.1); Sodium 137.0 mmol/L (136-145)
--- NOTE | 2025-02-18 10:31 | Orthopedic Consultation ---
Date of Consultation February 18, 2025 Assessment & Plan (1) Periprosthetic fracture around internal prosthetic right hip joint: Patient has a periprosthetic right greater trochanter fracture. It is minimally displaced and in good alignment. The prosthesis seems to be stable. No plans for surgical intervention at this time. We would recommend 50% (partial) weightbearing on the right lower extremity with the assistance of a walker at all times. He may do active hip range of motion as tolerated. No hip precautions are necessary. Recommend ice as needed to his right thigh for pain. He can elevate his right leg as needed for comfort. Would recommend aspirin 81 mg p.o. twice daily for DVT prophylaxis. He will follow-up with Dr. Valentin for outpatient care. We will schedule that appointment for approximately 10 days from now. Case management for disposition needs. He may be out of bed for physical therapy and Occupational Therapy. Depending on how he does and that he may go to inpatient rehab or home with at home physical therapy. He understands and agrees with the plan. Dr. Young was present for today's visit. Patient understands and agrees with the plan. Supervising Physician Co-Signing Physician Notes I, Dr. Young, saw and examined the patient with my PA. I discussed the management with my PA. I reviewed my PAs note and agree with the documented findings and attest to completing the substantive portion of medical decision making and plan of care I developed. History of Present Illness Reason for Consultation: Right greater trochanter fracture; periprosthetic Requesting Physician: Fady Young MD covering for Dr. Valentin Attending Physician: Xochitl Thomas MD History of Present Illness This is a 74-year-old male presents emergency department due to concern for right hip pain after a fall at home. Patient states he got up from eating outside on the deck, was carrying things to go back into the house and they started to fall and as he tried to grab them he became unsteady and off balance and fell backwards and slightly to the right. Patient states he did strike his head but did not lose consciousness or pass out. He states he then tried to crawl to grab a hold of something to try and get back up. Family came out and helped him. They did give him a walker and they were able to help him to a standing position however patient had severe pain trying to bear weight at the right hip. Patient states he has had prior bilateral hip replacements and a knee replacement as well done by Dr. Valentin of orthopedics. Patient is currently receiving chemotherapy for pancreatic cancer. No current antiplatelet or anticoagulation medications. He denies any current headaches, dizziness, vision changes, worsening nausea, shortness of breath, chest pain, abdominal pain, neck or back pain. Garrick is a well-known patient of Dr. Valentin. He states he was unable to get up on his own yesterday. He has severe pain when he tries to bear weight on the right hip. He had x-rays and a CT scan that shows a right greater trochanter fracture around the right hip prosthesis. Minimally displaced. Orthopedic consultation was placed for further recommendations and treatment. Allergies Allergy/AdvReac Type Severity Reaction Status Date / Time No Known Allergies Allergy Unknown Verified 02/17/25 17:54 Home Medications Medication Instructions Recorded Confirmed Type sildenafil (pulm.hypertension) 20 20 - 100 mg (1 - 5 x 20 mg) PO 12/26/23 02/17/25 Rx mg tablet DAILY PRN sexual activity #30 tabs fluvoxamine 100 mg tablet 100 mg PO TID 09/30/24 02/17/25 History cholecalciferol (vitamin D3) 50 2,000 unit PO DAILY 10/16/24 02/17/25 History mcg (2,000 unit) capsule clonazepam 0.5 mg tablet 0.25 mg PO BID PRN Anxiety 10/16/24 02/17/25 History hydrochlorothiazide 12.5 mg tablet 12.5 mg PO DAILY #30 tabs 01/28/25 02/17/25 Rx omega 4-zzh-fox-fish oil 1,000 mg 1 cap PO DAILY 01/28/25 02/17/25 History (120 mg-180 mg) capsule (Fish Oil) potassium chloride 20 mEq 20 meq PO Q OTHER DAY 02/17/25 02/17/25 History tablet,extended release acetaminophen 500 mg tablet 1,000 mg (2 x 500 mg) PO Q8 #20 02/18/25 Rx (Tylenol Extra Strength) tabs aspirin 81 mg tablet,delayed 81 mg PO BID #30 tabs 02/18/25 Rx release Patient History Medical History Sensorineural hearing loss of both ears Tinnitus, bilateral Vitamin D deficiency [place] (hard of hearing) History of prostate cancer 2006 History of colon polyps Mitral regurgitation MILD TO MODERATE Osteoarthritis Anxiety Surgical History History of esophagogastroduodenoscopy (EGD) History of colonoscopy 11/2019 repeat 5 yrs History of total left knee replacement (TKR) History of tonsillectomy History of herniorrhaphy B/L INGUINAL History of prostatectomy (~2006) TOTAL (2006) History of total hip arthroplasty B/L Family History Father Prostate cancer Lung cancer Smoker Mother , in a MVA; no medical problems Family hx colonic polyps Other No family history of adverse response to anesthesia Denies family history of Ovarian cancer Myocardial infarction Breast cancer Colorectal cancer Social History Smoking Status: Never smoker Second Hand Exposure: No; Do You Dip or Chew Tobacco: No; Hx Alcohol Use: No Hx Substance Use: No Preferred Language: Portuguese Communication Ability: Effective Visual Impairment: Limited Hearing Ability: Normal Bag Checker Required: No Beliefs That Will Affect Care: None marital status: Current Living Situation: Spouse Current Living Situation Comment: lives with and son at home current occupational status: employed How many Children do You have: 2 Feels Safe at Home: Yes Safety Concerns: Feels Safe At This Time Childhood Exposure to Second-Hand Smoke: Yes (father smoked ) Diet: regular Diet Comment: healthy caffeine: No Dental Care, Regularly: Yes Physical Activity Frequency: Daily Seatbelt Use: always Sunscreen Use: Yes Do you think of yourself as: straight/heterosexual Assistive Devices: Cane, Glasses and Walker Physical Exam Musculoskeletal: Exam focused on his right lower extremity: He has no skin abrasions, ecchymosis or erythema over the right hip. He tolerates passive range of motion of the right hip and logrolling without discomfort. He does have discomfort with active attempts at straight leg raising in the right lateral thigh. The thigh is supple and nontender. No knee effusion. Nontender around the right knee. No distal edema. Distal pulses are 2+. Distal sensation is diminished in his feet due to the chemotherapy; this is normal for him. He is able to gently extend his right knee. His right leg is propped on a pillow behind his knee and thighs for comfort. Is able to wiggle his ankles and toes without any discomfort. Results & Data Vital Signs (Past 12 Hours) Vital Signs Temp Pulse Resp BP Pulse Ox O2 Del Method 02/18/25 07:45 Room Air 02/18/25 07:21 36.5 C 52 L 18 110/70 94 Room Air 02/17/25 22:55 36.6 C 58 L 22 149/98 H 97 Room Air 02/17/25 22:45 Room Air 02/17/25 22:45 36.6 C 58 L 22 149/98 H 97 Room Air Laboratory Results 02/18/25 02/18/25 02/17/25 Range/Units 06:05 05:58 23:36 WBC 14.64 H (4.8-10.8) K/ul RBC 3.56 L (4.70-6.10) M/uL Hgb 11.3 L (14.0-18.0) g/dl Hct 33.5 L (42.0-52.0) % MCV 94.1 (80.0-100.0) fL MCH 31.7 (25.0-34.0) pg MCHC 33.7 (32.0-36.0) g/dL RDW Std Deviation 53.8 H (36.4-46.3) fL RDW Coeff of Vincenzo 15.5 H (11.5-14.5) % Plt Count 107 L (130-400) K/uL MPV 10.4 (9.4-12.4) fL Immature Gran % (Auto) % Neut % (Auto) % Lymph % (Auto) % Douglas % (Auto) % Eos % (Auto) % Baso % (Auto) % Neut # (Auto) (1.40-6.50) K/uL Lymph # (Auto) (1.20-3.40) K/uL Douglas # (Auto) (0.11-0.59) K/uL Eos # (Auto) (0.00-0.50) K/uL Baso # (Auto) (0.00-0.20) K/uL Immature Gran # (Auto) (0.01-0.20) K/uL Dohle Bodies PT (9.0-12.0) Seconds INR (0.9-1.1) Sodium 137 136 (136-145) mmol/L Potassium 3.4 L 3.4 L (3.5-5.1) mmol/L Chloride 104 104 (98-107) mmol/L Carbon Dioxide 28 27 (21-32) mmol/L Anion Gap 5 5 (3-11) BUN 10 11 (6-23) mg/dl Creatinine 0.63 0.73 (0.6-1.4) mg/dl Est Cr Clr Drug Dosing 119.0 102.7 ml/min eGFR 99.81 95.47 BUN/Creatinine Ratio 15.9 15.1 (10-20) Glucose 117 H 128 H (70-99(Fasting)) mg/dl Calcium 8.4 L 8.2 L (8.6-10.3) mg/dl Magnesium 1.8 (1.7-2.4) mg/dl Total Bilirubin (0.2-1.0) mg/dl AST (13-39) U/L ALT (7-52) U/L Alkaline Phosphatase (34-104) U/L Total Creatine Kinase (30-223) U/L Total Protein (6.0-8.3) gm/dl Albumin (3.4-5.0) gm/dl Globulin (2.5-4.0) gm/dl Albumin/Globulin Ratio (0.9-2) Procalcitonin (0-0.5) ng/ml Urine Color Urine Appearance (Clear) Urine pH (4.5-7.5) Ur Specific [place] (1.000-1.030) Urine Protein (Negative) Urine Glucose (UA) (Negative) Urine Ketones (Negative) Urine Blood (Negative) Urine Nitrite (Negative) Urine Bilirubin (Negative) Urine Urobilinogen (Negative) Ur Leukocyte Esterase (Negative) Urine Comment 02/17/25 02/17/25 Range/Units 19:20 16:43 WBC 19.35 H (4.8-10.8) K/ul RBC 3.97 L (4.70-6.10) M/uL Hgb 12.6 L (14.0-18.0) g/dl Hct 36.9 L (42.0-52.0) % MCV 92.9 (80.0-100.0) fL MCH 31.7 (25.0-34.0) pg MCHC 34.1 (32.0-36.0) g/dL RDW Std Deviation 53.4 H (36.4-46.3) fL RDW Coeff of Vincenzo 15.8 H (11.5-14.5) % Plt Count 131 (130-400) K/uL MPV 10.2 (9.4-12.4) fL Immature Gran % (Auto) 1.2 % Neut % (Auto) 89.0 % Lymph % (Auto) 6.3 % Douglas % (Auto) 2.8 % Eos % (Auto) 0.2 % Baso % (Auto) 0.5 % Neut # (Auto) 17.24 H (1.40-6.50) K/uL Lymph # (Auto) 1.22 (1.20-3.40) K/uL Douglas # (Auto) 0.54 (0.11-0.59) K/uL Eos # (Auto) 0.03 (0.00-0.50) K/uL Baso # (Auto) 0.09 (0.00-0.20) K/uL Immature Gran # (Auto) 0.23 H (0.01-0.20) K/uL Dohle Bodies 3+ PT 11.6 (9.0-12.0) Seconds INR 1.1 (0.9-1.1) Sodium 137 (136-145) mmol/L Potassium 3.7 (3.5-5.1) mmol/L Chloride 102 (98-107) mmol/L Carbon Dioxide 27 (21-32) mmol/L Anion Gap 8 (3-11) BUN 14 (6-23) mg/dl Creatinine 0.94 (0.6-1.4) mg/dl Est Cr Clr Drug Dosing 79.7 ml/min eGFR 85.07 BUN/Creatinine Ratio 14.9 (10-20) Glucose 206 H (70-99(Fasting)) mg/dl Calcium 8.7 (8.6-10.3) mg/dl Magnesium 1.8 (1.7-2.4) mg/dl Total Bilirubin 0.6 (0.2-1.0) mg/dl AST 28 (13-39) U/L ALT 35 (7-52) U/L Alkaline Phosphatase 266 H (34-104) U/L Total Creatine Kinase 74 (30-223) U/L Total Protein 6.1 (6.0-8.3) gm/dl Albumin 3.3 L (3.4-5.0) gm/dl Globulin 2.8 (2.5-4.0) gm/dl Albumin/Globulin Ratio 1.2 (0.9-2) Procalcitonin 0.28 (0-0.5) ng/ml Urine Color Dark Yellow Urine Appearance Clear (Clear) Urine pH 6.5 (4.5-7.5) Ur Specific [place] 1.022 (1.000-1.030) Urine Protein Negative (Negative) Urine Glucose (UA) Negative (Negative) Urine Ketones Negative (Negative) Urine Blood Negative (Negative) Urine Nitrite Negative (Negative) Urine Bilirubin Negative (Negative) Urine Urobilinogen Negative (Negative) Ur Leukocyte Esterase Negative (Negative) Urine Comment Diagnostic Findings Hip/Pelvis X-Ray 02/17/25 16:25 Study: Pelvis 1 view, right hip 2 views History: Pain Comparison: 08/24/2023 Findings: Bilateral total hip arthroplasty. A fracture extends into the proximal femur at the base of the greater trochanter laterally, and extends into the stem of the arthroplasty. Single frontal view of the left arthroplasty appears intact without fracture. Alignment is anatomic. Joint spaces are well maintained. There is no joint effusion or significant soft tissue swelling. Bone mineralization is decreased. Impression: Fracture of the proximal right femur extending into the stem of the arthroplasty Electronically signed by Erasto Quiros 02-17-2025 6:[address] 02/17/25 16:26 EXAM: CT cervical spine wo con CLINICAL HISTORY: trauma TECHNIQUE: CT scan of the cervical spine was performed without the administration of intravenous contrast. Contiguous axial images were obtained from the skull base to the upper thoracic spine. Coronal and sagittal reformatted images were also reviewed. One of the following dose reduction techniques was utilized for this exam. Automated exposure control, adjustment of the mA and/or kV according to patient size, and use of iterative reconstruction. COMPARISON: No previous studies are available for comparison. FINDINGS: Advanced cervical spondylotic changes are seen by wedging (C5) and multilevel large anterior marginal and bridging osteophytes (some are detached). Vertebrae: No evidence of acute fracture or dislocation. Generalized osteopenia. No signs of lytic or sclerotic lesions. Normal configuration of the posterior elements. Grade 1 anterolisthesis of C3 over C4. Atlantoaxial osteoarthritic changes. Intervertebral Discs: The intervertebral disc spaces are narrowed at multiple levels. Significantly reduced intervertebral disc space at C3-C4, C5-C6 and C6-C7 levels with vacuum phenomena and disc osteophyte complexes indenting the ventral thecal sac and narrowing the bilateral neural foramina. No critical bony canal stenosis. Facet Joints: Multilevel facet osteoarthropathy. No evidence of dislocation or subluxation. Neural Foramina: The neural foramina are narrowed at multiple levels. Prevertebral Soft Tissues: The prevertebral soft tissues are normal in thickness without evidence of mass or abnormal fluid collection. Additional Findings: Right central venous line inserted. IMPRESSION: 1. Advanced cervical spondylosis. 2. No evidence of acute fracture or dislocation. Electronically signed by Kevin Cruz 02-17-2025 6:19 PM Chest X-Ray 02/17/25 16:26 Chest radiograph, one view History: Chest pain Comparison: None Findings: Single AP view of the chest performed. No focal consolidation or pleural effusion. No pneumothorax. Right chest wall port with catheter tip at the superior atrial caval junction. The cardiomediastinal silhouette is within normal limits. Normal pulmonary vascularity. No evidence for lymphadenopathy. No visualized bony or soft tissue abnormality. Degenerative changes of the thoracic spine. Impression: Normal chest radiograph Electronically signed by Erasto Quiros 02-17-2025 6:[address] 02/17/25 16:26 EXAM: CT head/brain wo con CLINICAL HISTORY: trauma. Pt presents to ED via EMS from home with Right hip pain after a fall. Pt states he was on the first stair, fell backwards and struck his head, and began having right hip pain. EMS notes the pt has had bilateral hip replacements and the right does not feel the same as the left. pt is unable to bear weight at this point. pt is a cancer pt on chemo for pancreatic cancer. BP was low for EMS at 100/45 TECHNIQUE: Axial non-contrast CT scan of the brain was performed from the skull base to the high parietal region. One of the following dose reduction techniques were utilized for this exam: Automated exposure control, adjustment of the mA and/or kV according to patient size, use of iterative reconstruction. DLP: 1818.42 mGy.cm COMPARISON: None. FINDINGS: Brain Parenchyma: Age-related involutionary changes. Normal attenuation of the cerebral hemispheres, cerebellum, and brainstem. No evidence of acute infarct, hemorrhage, or mass effect. No abnormal areas of hypo- or hyperattenuation. Ventricular System: No evidence of hydrocephalus or ventricular enlargement. Subarachnoid Spaces: Prominent sulci and cisterns. No evidence of subarachnoid hemorrhage or extra-axial fluid collections. Cerebellum and Brainstem: No masses, lesions, or areas of abnormal density. Giant cisterna magna. Orbits: Normal appearance of the globes, optic nerves, and extraocular muscles. No evidence of orbital masses or abnormal density. Sinuses: Clear paranasal sinuses. No evidence of sinusitis or mucosal thickening. Mastoid Air Cells: Clear mastoid air cells. No evidence of mastoiditis. Skull: Normal skull morphology. Small subgaleal soft tissue swelling with thickness of 6.8 mm in right occipital region. IMPRESSION: 1. Age-related involutionary changes. 2. Small subgaleal soft tissue swelling with thickness of 6.8 mm in right occipital region. 3. No acute intracranial hemorrhage. Electronically signed by Kevin Cruz 02-17-2025 5:51 PM
[2025-02-18] MEDS: POTASSIUM CHLORIDE CRTAB 20 MEQ TABCR PO SCH (10:49)
[2025-02-18] MEDS: POTASSIUM CHLORIDE CRTAB 20 MEQ TABCR PO STA (12:05)
[2025-02-18] MEDS: MoRPHine SULFATE 2 MG/ML CARP IV PRN (13:15)
[2025-02-18 13:16] VITALS: O2SAT 98
--- NOTE | 2025-02-18 14:47 | Hospitalist Progress Note ---
Date of Service February 18, 2025 Assessment & Plan (1) Femur fracture, right: (2) Fall: (3) CHI (closed head injury): (4) Pancreatic cancer: Plan 74-year-old male PMHx pancreatic cancer on chemotherapy, HTN, HLD, obesity, pancreatic cancer, depression and OCD presenting with R hip pain after falling backwards and striking his head the day of arrival. #R femur fracture/Fall/Closed head injury Pt presenting for R hip pain after falling backwards, unable to bear weight on R hip. Right Hip XR: fx of proximal R femur extending into stem of arthroplasty. Head CT: no acute bleed. small subcutaneous soft tissue swelling w/ 6.8mm thickness in R occipital region CXR & cervical spine CT negative CBC w/ downtrending leukocytosis. K mildly low at 3.4 (s/p repletion), stable renal function & mag Ortho consulted --> no plans for surgical intervention. 50% weight bearing on RLE w/ assistance of walker. active hip ROM as tolerated. ASA 81mg PO BID for DVT prophylaxis. Trend platelet count w/ being on ASA BID. --> thrombocytopenia likely secondary to chemotherapy. Pain management: scheduled tylenol w/ morphine prn for breakthrough. PT/OT consulted --> recommending rehab stay upon discharge. AM CBC, BMP #Pancreatic CA/Prostate CA Diagnosed with pancreatic cancer September,. Prostate CA ~ 16 years ago, PSA undetectable in 2023. Follows with hematology/oncology, most recent visit 02/11/2025. Currently on FOLFIRINOX and Pegfilgrastim. Does occasionally get diarrhea after chemo, utilizes Imodium for such. Consult oncology as needed. #OCD/Anxiety- Fluvoxamine, Clonazepam prn (states that he takes this 3x/day papito, ordered as such) - continue #HTN- HCTZ - continue Dispo: Admit, med/sx VTE Prophylaxis: ASA 81mg BID as recommended by ortho. Admission and Anticipated Discharge Date Admission Date: February 17, 2025 Jonas Borjas seen and examined this morning. States he is doing okay today. He reports right hip pain that was about 5-6/10 at time of my encounter. The morphine has been effective in controlling the pain. Physical Exam Constitutional: WD/WN, vitals as above Eyes: PERRL, conjunctivae normal, anicteric sclerae Respiratory: normal respiratory effort Cardiovascular: no LE edema Skin: no rashes, warm and dry Neurologic: PERRL, EOMI, accommodation nl, no face palsy, no dysarthria Psychiatric: A+Ox3, euthymic affect Results & Data Results & Data Vital Signs (Past 12 Hours) Vital Signs Temp Pulse Resp BP Pulse Ox O2 Del Method 02/18/25 13:12 36.6 C 56 L 19 123/77 98 Room Air 02/18/25 07:45 Room Air 02/18/25 07:21 36.5 C 52 L 18 110/70 94 Room Air PG Care Time/CCT Total # of Minutes Spent Total Time Spent with Patient: Total time spent is greater than 50% in coordination of care (as documented) at patient's floor/unit and/or counseling patient: Coding Level of Care Code 08242 SUB INP/OBS CARE 2/35MIN Diagnoses Femur fracture, right S72.91XA Fall W19.XXXA CHI (closed head injury) S09.90XA Pancreatic cancer C25.9
[2025-02-18] MEDS: ACETAMINOPHEN 500 MG TAB PO SCH (15:24)
--- NOTE | 2025-02-18 15:44 | Communication Note ---
Date of Service: February 18, 2025 By CMS guidelines, a determination that the admission or continued stay is not medically necessary has been made by a member of the UR committee and a physi santo for this hospital stay, therefore a Code 44 will be completed and the Inpatient admission will be changed to outpatient.
[2025-02-18 15:47] VITALS: BP 120/68; PULSE 59; RESP 16; TEMP 98.8
--- NOTE | 2025-02-18 15:47 | Discharge Summary ---
Discharge Summary Date of Service February 18, 2025 Principal Dx & Hospital Course #1 = Principal Diagnosis (1) Femur fracture, right: (2) Fall: (3) CHI (closed head injury): (4) Pancreatic cancer: Plan 74-year-old male PMHx pancreatic cancer on chemotherapy, HTN, HLD, obesity, pancreatic cancer, depression and OCD presenting with R hip pain after falling backwards and striking his head the day of arrival. #R femur fracture/Fall/Closed head injury- Periprosthetic fracture around right hip internal prosthetic joint Pt presenting for R hip pain after falling backwards, unable to bear weight on R hip. Right Hip XR: fx of proximal R femur extending into stem of arthroplasty. Head CT: no acute bleed. small subcutaneous soft tissue swelling w/ 6.8mm thickness in R occipital region CXR & cervical spine CT negative CBC w/ downtrending leukocytosis. K mildly low at 3.4 (s/p repletion), stable renal function & mag Ortho consulted --> no plans for surgical intervention. 50% weight bearing on RLE w/ assistance of walker. active hip ROM as tolerated. ASA 81mg PO BID for DVT prophylaxis. Trend platelet count w/ being on ASA BID. --> thrombocytopenia likely secondary to chemotherapy. Pain management: scheduled tylenol w/ morphine prn for breakthrough. --> can convert to PO Oxycodone at [facility] for breakthrough pain. PT/OT consulted --> recommending rehab stay upon discharge. - to go to [facility] 02/18. #Pancreatic CA/Prostate CA Diagnosed with pancreatic cancer September,. Prostate CA ~ 16 years ago, PSA undetectable in 2023. Follows with hematology/oncology, most recent visit 02/11/2025. Currently on FOLFIRINOX and Pegfilgrastim. Does occasionally get diarrhea after chemo, utilizes Imodium for such. #OCD/Anxiety- Fluvoxamine, Clonazepam prn (states that he takes this 3x/day papito, ordered as such) - continue #HTN- HCTZ - continue Discharged to [facility] 02/18. Admission HPI Per Admitting Provider 74-year-old male PMHx pancreatic cancer on chemotherapy, HTN, HLD, obesity, pancreatic cancer, depression and OCD presenting with R hip pain after falling backwards and striking his head the day of arrival. He did have bilateral hip replacements in the past, states that right does not feel the same as the left. Unable to bear weight. Pt states that he had come home from work to have lunch with his family. He describes feeling that he was having "chemo fog" which he experiences after chemo often, and some fatigue. He was carrying dishes back into the house when he went to step up 1 step and lost balance, falling backwards and hitting his head. He did not lose consciousness. He states he imme diately had R hip pain and was unable to get up on his own. Describes the pain being 10/10 on the pain scale with any movement, but currently he is without pain and is just experiencing throbbing in his RLE. He does occasionally have diarrhea and after his fall, he had soiled himself. He normally takes Imodium for these episodes and it is 2/2 his chemotherapy. Has neuropathy at baseline in BLE. He reports no additional symptoms at that time to include chest pain, palpitations, SOB, abdominal pain, N/V/C, numbness/tingling, F/C, URI symptoms, LUTS, weakness, or syncope. Again, no LOC. His last chemotherapy cycle was 02/11 and then he had a chemo drip until 02/13. He is due for chemotherapy again next week, on 02/25/2025. Pt does have history of bilateral hip repairs and L knee repair, done by [facility]. ED evaluation reveals CBC with leukocytosis 19.35, H&H 12.6/36.9; PT/INR WNL; CMP glucose 206, alkaline phosphatase 266, albumin 3.3; procalcitonin 0.28; UA negative for infection; hip/pelvis XR (R) fracture of proximal R femur extending into the stem of arthroplasty; cervical spine CT advanced cervical spondylosis but no fracture or dislocation; CXR WNL; head CT age-related changes, small subgaleal soft tissue swelling with thickness of 6.8 mm in R occipital region, no acute hemorrhage; EKG NSR at 60 bpm.; Provided with 500 mL NSS, fentanyl citrate 50 mcg IV, and acetaminophen 1 g IV in ED. Please see Dr. Burnett's attestation for adjustments/additions to treatment plan. Discharge Plan Discharge Items Patient Disposition: Transfer Inpatient Rehab Fac Reason For Visit: R FEMUR FX, CHI Discharge Diagnosis: Right femur fracture Condition on Discharge: Fair Activity: Per Instructions section Weightbearing: Right partial Weightbearing Comment: with walker at all times Non-emergency contact: Surgeon Call non-emergency contact if: you have any medication questions, your symptoms worsen, your pain is not controlled, your temperature is above 101, your wound has increased redness and your wound has increased drainage Follow-up/Referrals: Eder Valentin MD [Surgeon] - 03/02/25 4:00 pm Som Angel, [Primary Care Provider] - Diet: Regular Addtl Attending Provider Instructions: Mr. Nugent, You were recently hospitalized following a fall and were found to have a femur fracture. You were treated with pain medication and evaluated by orthopedics & physical/occupational therapy. You are going to [facility] to get stronger prior to returning home. Orthopedic instructions are below. Best of luck! Kimberly Salamanca PA-C Addtl Job Captain Provider Instructions: Orthopedic instructions: - Partial (50%) weightbearing at all times with the assistance of a walker. - No hip precautions are necessary. May do range of motion of right hip, knee and ankle as tolerated. - Ice to right hip as needed for pain or swelling. - Elevate right lower extremity as needed for swelling. - Aspirin 81 mg p.o. twice daily for DVT prophylaxis for 6 weeks after injury. - Pain medication as needed/prescribed. - Follow-up with Dr. Valentin as scheduled on - Call [phone] with any increased pain, swelling, questions or concerns or need to reschedule appointment. Pending Studies at Discharge: No Stand-Alone Forms: My [facility] Skilled Items Patient informed of condition?: Yes DNR: No Discharge Level of Care: Acute rehab Communicable Disease: No Discharge Prognosis: Stable Lines: None Urinary Catheter: No Medications and DC Order Prescriptions: New acetaminophen [Tylenol Extra Strength] 500 mg Tablet 1,000 mg PO Q8 Qty: 20 0RF aspirin 81 mg Tablet,Delayed Release (Dr/Ec) 81 mg PO BID Qty: 30 0RF Continued fluvoxamine 100 mg tablet 100 mg PO TID sildenafil (pulm.hypertension) 20 mg tablet 20 - 100 mg PO DAILY PRN (Reason: sexual activity) Qty: 30 6RF Rx Instructions: Take 1-5 tablets as needed prior to activity. Do not exceed 100 mg in 24 hours. omega 5-any-yim-fish oil [Fish Oil] 1,000 (120-180) mg capsule 1 cap PO DAILY hydrochlorothiazide 12.5 mg tablet 12.5 mg PO DAILY Qty: 30 2RF cholecalciferol (vitamin D3) 50 mcg (2,000 unit) capsule 2,000 unit PO DAILY clonazepam 0.5 mg tablet 0.25 mg PO BID PRN (Reason: Anxiety) potassium chloride 20 mEq tablet extended release 20 meq PO Q OTHER DAY Discontinued aspirin 81 mg Tablet,Delayed Release (Dr/Ec) 81 mg PO QPM Discharge Orders: Discharge Order (Routine); Ordered 02/18/25 Ordered By: Kimberly Salamanca Admission Data Admit Date/Time: 02/17/25 20:18 Attending Provider: Xochitl Thomas Admit Provider: Meghan Burnett Primary Care Provider: Som Angel Other Providers: Meghan Burnett; [facility]; Brendan Young A Other Interventions: Discharge Summary Assessment (RN) Last Done: 02/18/25 15:57 Hospital Stay Data Consultations 02/17/25 19:29 ED Decision to Admit Stat 02/17/25 22:55 Consult Orthopedic Surgery Routine Diagnostic Imagining Performed 02/17/25 16:26 CT cervical spine wo con Stat CT head/brain wo con Stat Pending Results Patient Have Any Pending Studies at Discharge: No Discharge Instructions Given to Patient (Per Discharging Provider) Catarino Zhang were recently hospitalized following a fall and were found to have a femur fracture. You were treated with pain medication and evaluated by orthopedics & physical/occupational therapy. You are going to [facility] to get stronger prior to returning home. Orthopedic instructions are below. Best of luck! Kimberly Salamanca PA-C Total Time Total Time Spent Total Time Spent (In Minutes): 45 Total Time Includes: Examination of the Patient, Discharge Planning and Medication Reconciliation Coding Level of Care Code None Diagnoses Femur fracture, right S72.91XA Fall W19.XXXA CHI (closed head injury) S09.90XA Pancreatic cancer C25.9
[2025-02-18] MEDS ORDERED: ASPIRIN 81 MG ECTAB PO SCH (21:00)
--- NOTE | 2025-02-21 06:45 | Electrocardiogram Report ---
Test Reason : Blood Pressure : */* mmHG Vent. Rate : 60 BPM Atrial Rate : 60 BPM P-R Int : 178 ms QRS Dur : 90 ms QT Int : 404 ms P-R-T Axes : 27 -20 25 degrees QTcB Int : 404 ms Normal sinus rhythm Possible Anterior infarct , age undetermined Abnormal ECG When compared with ECG of 05-Aug-2018 13:11, Borderline criteria for Anterior infarct are now Present Borderline criteria for Inferior infarct are no longer Present Confirmed by Vinny Wall ([id number]) on 02/21/2025 6:44:56 AM Referred By: REFERRED SELF Confirmed By: Vinny Wall
== END 2025-02-18 17:19 | DRG 536 ==
LOC: ED 15:46 → SUATTDRO 20:18 → 3E 20:18 → INTOOBSV 20:18 → 3E 22:38